=== PATIENT | male | born 1965 | race Caucasian/White ===

== ENCOUNTER 2017-03-25 19:11 | Emergency (ER) | payer OTHER ==
[~2017-03-25] VITALS: Ht 177.8 cm; Wt 90.7 kg
[2017-03-25 19:21] VITALS: BP 152/95
--- NOTE | 2017-03-25 20:45 | NUR ---
PATIENT LEFT WITHOUT BEING SEEN BY DR. Dacosta. NO FURTHER CARE PROVIDED FOR PATIENT.
== END 2017-03-25 20:45 | disposition left against medical advice (07) ==
LOC: MED 19:11
DX: R20.0 Anesthesia of skin (principal); Z53.21 Procedure and treatment not carried out due to patient leaving prior to being seen by health care provider

== ENCOUNTER 2018-11-13 15:00 | Inpatient (IN) | payer MEDICAID, OTHER ==
[~2018-11-13] VITALS: Ht 170.2 cm; Wt 95.3 kg
[2018-11-13 15:00] VITALS: BP 173/93
[2018-11-13] MEDS ORDERED: ASPIRIN 81 MG TAB.CHEW PO ONE (15:15)
[2018-11-13] MEDS ORDERED: NACL 0.9% 1,000 ML IV ONE (15:15)
[2018-11-13] MEDS ORDERED: NITROGLYCERIN 2% 1 GM PKT TP ONE (15:15)
--- NOTE | 2018-11-13 15:20 | NUR ---
PATIENT PRESENTS TO ED WITH C/O CP RADIATING TO HIS LEFT ARM X 3 DAYS;fEELS NAUSEOUS BUT DENIES VOMITING;PT STATES HE HAS HEADACHE AND METALLIC TASTE ON HIS MOUTH;FEELS MILD SOB SATTING AT 98% RA.ALL MONITORS IN PLACED.PATIENT POSITIONED FOR COMFORT; HOB ELEVATED; BEDRAILS UP X2; BED DOWN. ER MD MADE AWARE OF PT STATUS.
--- NOTE | 2018-11-13 15:24 | NUR ---
XRAY AT BEDSIDE
--- NOTE | 2018-11-13 15:33 | NUR ---
Patient being evaluated by physician at bedside.
[2018-11-13 15:40] LABS: BASOPHILS # (AUTO) 0.1 K/uL (0.00-0.22); BASOPHILS % (AUTO) 0.8 % (0.0-2.0); EOSINOPHILS # (AUTO) 0.1 K/uL (0-0.4); EOSINOPHILS % (AUTO) 1.4 % (0.0-4.0); HEMATOCRIT 46.8 % (36-52); HEMOGLOBIN 15.8 g/dL (12.0-18.0); LYMPHOCYTES # (AUTO) 2.2 K/uL (2.0-11.5); LYMPHOCYTES % (AUTO) 25.4 % (20.5-51.1); MEAN CORPUSCULAR HEMOGLOBIN 31 pg (27-31); MEAN CORPUSCULAR HGB CONC 34 g/dL (33-37); MEAN CORPUSCULAR VOLUME 91.1 fL (80-94); MONOCYTES # (AUTO) 0.7 K/uL (0.8-1.0); MONOCYTES % (AUTO) 8.2 % (1.7-9.3); NEUTROPHILS # (AUTO) 5.5 K/uL (1.8-7.7); NEUTROPHILS % (AUTO) 64.2 % (42.2-75.2); PLATELET COUNT (AUTO) 237 K/uL (140-450); RED BLOOD CELL COUNT(AUTO) 5.13 MIL/uL (4.20-6.10); WHITE BLOOD COUNT (AUTO) 8.6 K/uL (4.8-10.8)
[2018-11-13 15:53] LABS: ANION GAP 11.9 (8-16); CARBON DIOXIDE 27.6 mmol/L (21-32); CREATININE 1.1 mg/dL (0.7-1.3); POTASSIUM 3.5 mmol/L (3.5-5.1)
[2018-11-13 16:00] LABS: ALBUMIN 3.7 g/dL (3.4-5.0); TOTAL BILIRUBIN 0.8 mg/dL (0.0-1.0)
[2018-11-13 16:05] LABS: PROTHROMBIN TIME 9.3 secs (10.8-13.4)
[2018-11-13] MEDS ORDERED: ZOLPIDEM 5 MG TAB PO PRN (16:25)
[2018-11-13] MEDS ORDERED: ONDANSETRON 4 MG/2 ML VIAL IVP PRN (16:25)
[2018-11-13] MEDS ORDERED: NITROGLYCERIN 0.4 MG TAB SL PRN (16:25)
[2018-11-13] MEDS ORDERED: ACETAMINOPHEN 325 MG TAB PO PRN (16:25)
[2018-11-13] MEDS ORDERED: HYDROcodone/APAP 7.5/325 MG 1 TAB PO PRN (16:25)
--- NOTE | 2018-11-13 16:49 | NUR ---
PT TAKEN TO TELE FLOOR BY OBI MIN AND EMT DEMETRICE
[2018-11-13 16:55] VITALS: BP 167/80
--- NOTE | 2018-11-13 16:55 | NUR ---
RECEIVED REPORT FROM PAKO, ED NURSE. PT IS AAOX4, AMBULATED SELF TO BED FROM [facility]. PT VITAL SIGNS STABLE. NO C/O CHEST PAIN. PT HAS R AC 20G, FLUSHING, INTACT, AND PATENT. NS RUNNING AT 10ML/HR. CLEAR LUNG SOUNDS. PT PERSONAL BELONGINGS AT BEDSIDE. AT BEDSIDE. NO DISTRESS NOTED AT THIS TIME. WILL CONTINUE TO MONITOR CLOSELY.
--- NOTE | 2018-11-13 16:55 | NUR ---
Patient will be admitted to care of Dr Rizvi. Admited to Tele. Will go to [id number]. Belongings list completed. Report to OBI Mccall.
[2018-11-13 17:26] LABS: FREE T4 (FREE THYROXINE) 0.7 ng/dL (0.76-1.46); MAGNESIUM 2.1 mg/dL (1.8-2.4); PHOSPHORUS 3.2 mg/dL (2.5-4.9); THYROID STIMULATING HORMONE 1.46 uIU/mL (0.34-3.74)
--- NOTE | 2018-11-13 17:58 | NUR ---
PT IN BED EATING DINNER. AT BEDSIDE. PT IN STABLE CONDITION AT THIS TIME. WILL CONTINUE TO ROUND FREQUENTLY. BED IN LOW POSITION, CALL LIGHT WITHIN REACH.
[2018-11-13] MEDS ORDERED: LISINOPRIL 20 MG TAB PO SCH (18:30)
[2018-11-13] MEDS: NACL 0.9% 1,000 ML IV SCH (18:56)
--- NOTE | 2018-11-13 19:36 | NUR ---
ENDORSED PT TO TILT WALL SUPERVISOR FOR CONTINUITY OF CARE. PT IN STABLE CONDITION AT THIS TIME.
--- NOTE | 2018-11-13 19:37 | NUR ---
REPORT RECEIVED FROM AM NURSE AT BEDSIDE. PT IN STABLE CONDITION. AAOX4. INTRODUCED SELF TO PT. BOARD UPDATED. NO COMPLAINTS OF CHEST PAIN. NO SOB. AFEBRILE. IV SITE R AC 20G RUNNING NS@TKO 10ML/HR PATENT AND INTACT. SKIN WARM, DRY, AND INTACT WITH NO OPEN WOUNDS. BED LOCKED IN LOW POSITION. CALL WHELAN WITHIN REACH. SAFETY PRECAUTIONS IN PLACE.
[2018-11-13 20:00] VITALS: BP 119/74
[2018-11-13] MEDS: METOPROLOL 25 MG TAB PO SCH (20:19)
[2018-11-13] MEDS: DOCUSATE SODIUM 100 MG GELCAP PO SCH ×2 (20:19→20:20)
--- NOTE | 2018-11-13 20:19 | NUR ---
LOPRESSOR GIVEN PO. PT TOLERATED WELL. Addendum: 11/13/18 at 2223 by Fabián Aguirre RN PT DEEPAK SEGAL.
--- NOTE | 2018-11-13 20:37 | NUR ---
NORCO GIVEN FOR 6/10 EYE PAIN. PT TOLERATED WELL.
[2018-11-13] MEDS ORDERED: CHLORHEXADINE GLUC 2% CLOTH TP SCH (21:40)
[2018-11-13] MEDS ORDERED: MUPIROCIN CA NASAL 2% 1GM TUBE NS SCH (21:40)
--- NOTE | 2018-11-13 22:15 | NUR ---
PT LAYING IN BED WATCHING TV. NO COMPLAINTS OF PAIN NOTED. ALL NEEDS MET AT THIS TIME.
[2018-11-14] VITALS (7 sets, daily range): BP systolic 120–147; BP diastolic 63–97
--- NOTE | 2018-11-14 00:35 | NUR ---
PT CANNOT SLEEP WITH BIPAP ON. ELECTED TO REMOVE SO HE CAN SLEEP.
--- NOTE | 2018-11-14 03:10 | NUR ---
PT SLEEPING COMFORTABLY IN BED BUT AROUSABLE. NO S/S OF DISTRESS NOTED. RESPIRATIONS EVEN, UNLABORED, AND WNL. NO COMPLAINTS OF CHEST PAIN.
--- NOTE | 2018-11-14 05:15 | NUR ---
PT SLEEPING COMFORTABLY IN BED. NO S/S OF DISTRESS NOTED. WILL CONTINUE TO MONITOR.
--- NOTE | 2018-11-14 07:20 | NUR ---
REPORT GIVEN TO AM NURSE AT BEDSIDE. PT IN STABLE CONDITION.
--- NOTE | 2018-11-14 07:30 | NUR ---
RECEIVED PT FROM PM NURSE, PT SLEEPING BUT ABLE TO FOLLOW COMMANDS. ON RA. NO S/S OF RESPIRATORY DISTRESS NOTED. LUNG SOUND CLEAR. PT ABLE TO AMBULATE. PT HAS IV TO RIGHT AC # 20 RUNNING NS AT 10 MLS/HR. INTRODUCED MYSELF AND UPDATED BOARD. POC EXPLAINED TO PT. PT VERBALIZED UNDERSTANDING. PT STATED HE DOES NOT HAVE ANY PAIN OR DISCOMFORT AT THIS MOMENT. CALL LIGHT IN REACH ,WILL CONTINUE TO MONITOR. VITALS SIGNS TAKEN, SB=50. 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 BP IN NORMAL RANGE.
[2018-11-14 07:37] LABS: BASOPHILS # (AUTO) 0.1 K/uL (0.00-0.22); BASOPHILS % (AUTO) 0.5 % (0.0-2.0); EOSINOPHILS # (AUTO) 0.2 K/uL (0-0.4); EOSINOPHILS % (AUTO) 1.9 % (0.0-4.0); HEMATOCRIT 42.8 % (36-52); HEMOGLOBIN 14.5 g/dL (12.0-18.0); LYMPHOCYTES # (AUTO) 1.8 K/uL (2.0-11.5); LYMPHOCYTES % (AUTO) 17.8 % (20.5-51.1); MEAN CORPUSCULAR HEMOGLOBIN 31 pg (27-31); MEAN CORPUSCULAR HGB CONC 34 g/dL (33-37); MEAN CORPUSCULAR VOLUME 92.5 fL (80-94); MONOCYTES # (AUTO) 0.7 K/uL (0.8-1.0); MONOCYTES % (AUTO) 7.2 % (1.7-9.3); NEUTROPHILS # (AUTO) 7.4 K/uL (1.8-7.7); NEUTROPHILS % (AUTO) 72.6 % (42.2-75.2); PLATELET COUNT (AUTO) 217 K/uL (140-450); RED BLOOD CELL COUNT(AUTO) 4.62 MIL/uL (4.20-6.10); RED CELL DISTRIBUTION WIDTH 13.5 % (11.6-13.7); WHITE BLOOD COUNT (AUTO) 10.3 K/uL (4.8-10.8)
[2018-11-14 07:49] LABS: ANION GAP 8.6 (8-16); CARBON DIOXIDE 27.5 mmol/L (21-32); POTASSIUM 4.1 mmol/L (3.5-5.1)
[2018-11-14 07:52] LABS: PHOSPHORUS 3.5 mg/dL (2.5-4.9)
[2018-11-14 07:53] LABS: CHOL/HDL RATIO 6.5 (1-4.5)
[2018-11-14] MEDS: DOCUSATE SODIUM 100 MG GELCAP PO SCH (08:31)
--- NOTE | 2018-11-14 08:36 | NUR ---
PT REFUSED COLACE AFTER EXPLAINED TO PT THE INDICATION OF THIS MEDICATION. HOLD LOPRESSOR DUE TO HR 50S. Addendum: 11/14/18 at 0838 by Harry Luna RN TOLD PT I WILL HOLD LOPRESSOR, PT VERBALIZED UNDERSTANDING.
[2018-11-14] MEDS: METOPROLOL 25 MG TAB PO SCH (08:55)
[2018-11-14] MEDS ORDERED: LISINOPRIL 5 MG TAB PO SCH (09:00)
[2018-11-14] MEDS ORDERED: ATORVASTATIN 20 MG TAB PO SCH (09:00)
[2018-11-14] MEDS ORDERED: ASPIRIN 81 MG TAB.CHEW PO SCH (09:00)
[2018-11-14] MEDS ORDERED: LISINOPRIL 20 MG TAB PO SCH (09:00)
--- NOTE | 2018-11-14 09:25 | NUR ---
RECEIVED PATIENT ON ROOM AIR, PULSE OX SATURATION 98%. NO RESPIRATORY DISTRESS NOTED AT THIS TIME. WILL CONTINUE TO MONITOR.
--- NOTE | 2018-11-14 13:00 | NUR ---
PT WALKS OCCASIONALLY, FAMILY AT BEDSIDE.
--- NOTE | 2018-11-14 15:58 | NUR ---
pt sitting at bedside. talking with family.
[2018-11-14] MEDS: NACL 0.9% 1,000 ML IV SCH (17:17)
[2018-11-14] MEDS ORDERED: ATOR20TA40 PO (18:33)
[2018-11-14] MEDS ORDERED: LISI-420 PO (18:33)
[2018-11-14] MEDS ORDERED: ASPI81CT95 PO (18:34)
--- NOTE | 2018-11-14 19:00 | NUR ---
DISCHARGE ORDERS PUT IN BY DR. KARYNA JERNIGAN.
--- NOTE | 2018-11-14 19:25 | NUR ---
REPORT RECEIVED FROM AM NURSE AT BEDSIDE. PT IN STABLE CONDITION. AAOX4. INTRODUCED SELF TO PT. BOARD UPDATED. NO COMPLAINTS OF PAIN. NO SOB. AFEBRILE. IV SITE R AC 20G RUNNING NS@10ML/HR TKO PATENT AND INTACT. SKIN WARM, DRY, AND INTACT WITH NO OPEN WOUNDS. BED LOCKED IN LOW POSITION. CALL WHELAN WITHIN REACH. SAFETY PRECAUTIONS IN PLACE.
--- NOTE | 2018-11-14 20:15 | NUR ---
PT DISCHARGE PAPERWORK ALL SIGNED. ALL BELONGINGS GONE. IV D/C. CANNULA INTACT. WRISTBAND CUT. PT DISCHARGED HOME.
== END 2018-11-14 20:10 | disposition home or self-care (01) | DRG 203 ==
LOC: MED 15:00 → MTU 16:33
PROVIDERS: ADMIT General Practice; ATTEND General Practice
DX: M94.0 Chondrocostal junction syndrome [Tietze] (principal); E02 Subclinical iodine-deficiency hypothyroidism; I16.1 Hypertensive emergency; I10 Essential (primary) hypertension; E78.5 Hyperlipidemia, unspecified; J45.909 Unspecified asthma, uncomplicated; R74.0 Nonspecific elevation of levels of transaminase and lactic acid dehydrogenase [LDH]; E66.9 Obesity, unspecified; Z83.3 Family history of diabetes mellitus; Z82.49 Family history of ischemic heart disease and other diseases of the circulatory system; Z68.32 Body mass index [BMI] 32.0-32.9, adult; G47.33 Obstructive sleep apnea (adult) (pediatric)
CPT/HCPCS: 36415; 71045; 80048; 80053; 82150; 83036; 83690; 83735; 83880; 84100; 84439; 84443; 84484; 85025; 85610; 85730; 87081; 93005; 94660; 96360; 99285; Q0092

== ENCOUNTER 2019-02-08 10:18 | Emergency (ER) | payer MEDICAID, OTHER ==
[~2019-02-08] VITALS: Ht 170.2 cm; Wt 102.1 kg
[~2019-02-08 10:18] MED LIST: ASPI81CT95 PO; ATOR20TA40 PO; LISI-420 PO
[2019-02-08 10:30] VITALS: BP 148/79
[2019-02-08] MEDS ORDERED: FISH1CAP3 PO (10:37)
[2019-02-08] MEDS ORDERED: GABA300C PO (10:37)
[2019-02-08] MEDS ORDERED: AMLO10TA PO (10:37)
[2019-02-08] MEDS ORDERED: LORA10TA19 PO (10:37)
--- NOTE | 2019-02-08 11:03 | NUR ---
ref from clinic r/o dvt c/o pitting edema ble x 1 wk---denies injury,no long car travel or flights venous stasis discoloration noted ble--- denies sob hx--htn, hyperlipidemia rx--lipitor PATIENT STATES PAIN OF 10/10 AT THIS TIME. PATIENT POSITIONED FOR COMFORT; BLL ELEVATED; BEDRAILS UP X2; BED DOWN. ER MD MADE AWARE OF PT STATUS.
[2019-02-08 11:07] LABS: BASOPHILS % (AUTO) 0.6 % (0.0-2.0); EOSINOPHILS # (AUTO) 0.3 K/uL (0-0.4); EOSINOPHILS % (AUTO) 3.4 % (0.0-4.0); HEMATOCRIT 41.8 % (36-52); HEMOGLOBIN 14.2 g/dL (12.0-18.0); LYMPHOCYTES # (AUTO) 1.9 K/uL (2.0-11.5); MEAN CORPUSCULAR HEMOGLOBIN 31 pg (27-31); MEAN CORPUSCULAR HGB CONC 34 g/dL (33-37); MEAN CORPUSCULAR VOLUME 91.4 fL (80-94); MONOCYTES # (AUTO) 0.7 K/uL (0.8-1.0); MONOCYTES % (AUTO) 8.6 % (1.7-9.3); NEUTROPHILS # (AUTO) 4.7 K/uL (1.8-7.7); NEUTROPHILS % (AUTO) 62.4 % (42.2-75.2); PLATELET COUNT (AUTO) 238 K/uL (140-450); RED BLOOD CELL COUNT(AUTO) 4.57 MIL/uL (4.20-6.10); RED CELL DISTRIBUTION WIDTH 13.3 % (11.6-13.7); WHITE BLOOD COUNT (AUTO) 7.6 K/uL (4.8-10.8)
[2019-02-08] MEDS ORDERED: FUROSEMIDE 40 MG TAB PO ONE (11:10)
[2019-02-08 11:25] LABS: PROTHROMBIN TIME 9.5 secs (10.8-13.4)
[2019-02-08 11:26] LABS: ALBUMIN 3.7 g/dL (3.4-5.0); ANION GAP 11.5 (8-16); CARBON DIOXIDE 29.6 mmol/L (21-32); CREATININE 0.8 mg/dL (0.7-1.3); POTASSIUM 4.1 mmol/L (3.5-5.1); TOTAL BILIRUBIN 0.8 mg/dL (0.0-1.0)
--- NOTE | 2019-02-08 11:26 | NUR ---
pt can't provide urine at this time.
[2019-02-08 11:47] LABS: MAGNESIUM 2.2 mg/dL (1.8-2.4); URIC ACID 4.7 mg/dL (2.6-7.2)
--- NOTE | 2019-02-08 12:21 | NUR ---
Patient appears to be comfortably in bed. Vital Signs within normal limits. Respirations even and unlabored.
--- NOTE | 2019-02-08 13:10 | NUR ---
URINE SPECIMEN SENT TO LAB
[2019-02-08 13:15] LABS: APPEARANCE,URINE CLEAR (CLEAR); BILIRUBIN,URINE NEGATIVE (NEGATIVE); BLOOD, URINE NEGATIVE (NEGATIVE); COLOR,URINE YELLOW (YELLOW); LEUKOCYTE ESTERASE ,URINE NEGATIVE (NEGATIVE); NITRITE, URINE NEGATIVE (NEGATIVE); UGLUCOSE NEGATIVE (NEGATIVE)
[2019-02-08 13:30] VITALS: BP 126/62
--- NOTE | 2019-02-08 13:30 | NUR ---
Patient discharged with v/s stable. Written and verbal after care instructions given and explained. Patient alert, oriented and verbalized understanding of instructions. Ambulatory with steady gait. All questions addressed prior to discharge. ID band removed. Patient advised to follow up with PMD. Rx of CLONIDINE& LASIX given. Patient educated on indication of medication including possible reaction and side effects. Opportunity to ask questions provided and answered.
== END 2019-02-08 13:30 | disposition home or self-care (01) ==
LOC: MED 10:18
DX: R60.0 Localized edema (principal); I10 Essential (primary) hypertension; E78.5 Hyperlipidemia, unspecified; Z79.82 Long term (current) use of aspirin; Z79.899 Other long term (current) drug therapy
CPT/HCPCS: 36415; 71045; 80053; 81003; 83735; 83880; 84484; 84550; 85025; 85379; 85610; 93005; 93970; 99284; Q0092

== ENCOUNTER 2020-09-26 21:19 | Emergency (ER) | payer SELFPAY ==
[~2020-09-26] VITALS: Ht 170.2 cm; Wt 108.9 kg
[~2020-09-26 21:19] MED LIST changes: +AMLO10TA PO; +FISH1CAP3 PO; +GABA300C PO; -LISI-420 PO; +LORA10TA19 PO
[2020-09-26 21:27] VITALS: BP 149/67
--- NOTE | 2020-09-26 21:30 | NUR ---
TO LOBBY A/W BED AMBULATORY
--- NOTE | 2020-09-26 21:36 | NUR ---
ekg performed at triage room. ekg reads sinus rhythm @ 62
--- NOTE | 2020-09-26 23:22 | NUR ---
PT TAKEN TO XRAY VIA WHEELCHAIR
[2020-09-26 23:34] LABS: BASOPHILS # (AUTO) 0.1 K/uL (0.00-0.22); BASOPHILS % (AUTO) 0.5 % (0.0-2.0); EOSINOPHILS # (AUTO) 0.6 K/uL (0-0.4); EOSINOPHILS % (AUTO) 5.5 % (0.0-4.0); HEMATOCRIT 42.9 % (36-52); HEMOGLOBIN 14.5 g/dL (12.0-18.0); LYMPHOCYTES # (AUTO) 2.9 K/uL (2.0-11.5); LYMPHOCYTES % (AUTO) 28.5 % (20.5-51.1); MEAN CORPUSCULAR HEMOGLOBIN 31 pg (27-31); MEAN CORPUSCULAR HGB CONC 34 g/dL (33-37); MEAN CORPUSCULAR VOLUME 92.7 fL (80-94); MONOCYTES % (AUTO) 10.2 % (1.7-9.3); NEUTROPHILS # (AUTO) 5.7 K/uL (1.8-7.7); NEUTROPHILS % (AUTO) 55.3 % (42.2-75.2); PLATELET COUNT (AUTO) 219 K/uL (140-450); RED BLOOD CELL COUNT(AUTO) 4.63 MIL/uL (4.20-6.10); RED CELL DISTRIBUTION WIDTH 13.1 % (11.6-13.7); WHITE BLOOD COUNT (AUTO) 10.3 K/uL (4.8-10.8)
--- NOTE | 2020-09-26 23:35 | NUR ---
PT COMING IN TODAY WITH C/O HIGH BLOOD PRESSURE, CHEST PAIN, FEELING FATIGUED, AND LETHARGIC, SOB WITH WHEEZING. PT DENIES FEVER, NO HEADACHE, NO N/V/D. PT SAYS HIS BLOOD PRESSURE AT HOME HAS BEEN ELEVATED, WITH THE HIGHEST BEING 173/89. PT HAS HAD THESE SYMPTOMS X 1 WEEK. CHEST PAIN/PRESSURE IS ACROSS HIS CHEST, PAIN IS NONRADIATING. SKIN WARM AND DRY. A/O X 4. BED IN LOWEST POSITION AND SIDERAIL UP X 1. NKA HX - HTN, HLD, PREDIABETIC, RESTLESS LEG SYNDROME
[2020-09-26 23:57] LABS: ALBUMIN 3.7 g/dL (3.4-5.0); ANION GAP 12.6 (8-16); CARBON DIOXIDE 27.1 mmol/L (21-32); CREATININE 1.1 mg/dL (0.6-1.3); POTASSIUM 3.7 mmol/L (3.5-5.1)
[2020-09-27] MEDS ORDERED: NACL 0.9% 500 ML IV ONE (00:05)
[2020-09-27] MEDS ORDERED: KETOROLAC 30 MG/ML VIAL IVP ONE (00:05)
[2020-09-27 01:36] VITALS: BP 145/69
--- NOTE | 2020-09-27 01:37 | NUR ---
Patient discharged with v/s stable. Written and verbal after care instructions given and explained. Patient alert, oriented and verbalized understanding of instructions. Ambulatory with steady gait. All questions addressed prior to discharge. ID band removed. Patient advised to follow up with PMD. Rx of ZINC AND VIT C given. Patient educated on indication of medication including possible reaction and side effects. Opportunity to ask questions provided and answered.
== END 2020-09-27 01:37 | disposition home or self-care (01) ==
LOC: MED 21:19
DX: R53.1 Weakness (principal); R73.03 Prediabetes; I10 Essential (primary) hypertension; G25.81 Restless legs syndrome; Z79.899 Other long term (current) drug therapy
CPT/HCPCS: 36415; 71045; 80053; 84484; 85025; 93005; 96361; 96374; 99285; J1885; J7030